=== PATIENT | female | born 1990 | race Caucasian/White ===

== ENCOUNTER 2016-05-12 07:40 | Emergency (ER) | payer OTHER | END 2016-05-12 10:06 | disposition home or self-care (01) | DX: S60.222A Contusion of left hand, initial encounter (principal); S70.02XA Contusion of left hip, initial encounter; S40.012A Contusion of left shoulder, initial encounter; W00.0XXA Fall on same level due to ice and snow, initial encounter; Y93.01 Activity, walking, marching and hiking; Y92.481 Parking lot as the place of occurrence of the external cause ==

== ENCOUNTER 2016-07-10 07:00 | Outpatient (CLI) | payer OTHER | END 2016-07-10 07:01 | disposition home or self-care (01) | DX: E78.00 Pure hypercholesterolemia, unspecified (principal) ==